=== PATIENT | male | born 1990 | race African-American/Black ===

== ENCOUNTER 2018-01-03 07:54 | Emergency (ER) | payer OTHER ==
[~2018-01-03] VITALS: Ht 185.4 cm; Wt 112.3 kg
[~2018-01-03 07:54] MED LIST: FLEXERIL10 MG PO; NAPROSYN500 MG PO; NO HOME MEDS
[2018-01-03] MEDS ORDERED: NAPROSYN500 MG PO (09:18)
[2018-01-03] MEDS ORDERED: FLEXERIL10 MG PO (09:18)
[2018-01-03] MEDS ORDERED: TRAMADOL HCL50 MG PO (09:18)
[2018-01-03 09:36] VITALS: BP 133/72
== END 2018-01-03 09:37 | disposition home or self-care (01) ==
LOC: EME 07:54
DX: S46.911A Strain of unspecified muscle, fascia and tendon at shoulder and upper arm level, right arm, initial encounter (principal); M54.6 Pain in thoracic spine; V49.40XA Driver injured in collision with unspecified motor vehicles in traffic accident, initial encounter; Y92.410 Unspecified street and highway as the place of occurrence of the external cause
CPT/HCPCS: 99281; 99283; J1885